=== PATIENT | male | born 1965 | race Caucasian/White ===

== ENCOUNTER 2016-10-27 11:49 | Emergency (ER) | payer BC ==
[2016-10-27 11:56] VITALS: BP 139/83
--- NOTE | 2016-10-27 12:47 | UC ---
Throat Pain/Nasal Valeriano HPI - HPI Summary HPI Summary: Sore throat , nasal congest, fatigue feels feverish, feels like when he had Lyme last year-did complete treatment, no addition tick exposures - History of Current Complaint Chief Complaint: UCRespiratory Stated Complaint: SINUS COMPLAINT Time Seen by Provider: 10/27/16 11:52 Hx Obtained From: Patient Onset/Duration: Gradual Onset, Lasting Days - 7, Still Present Severity: Mild Pain Intensity: 0 Pain Scale Used: 0-10 Numeric Cough: Nonproductive Associated Signs & Symptoms: Positive: Nasal Discharge. Negative: Sinus Discomfort - Allergies/Home Medications Allergies/Adverse Reactions: Allergies Allergy/AdvReac Type Severity Reaction Status Date / Time No Known Allergies Allergy Verified 10/27/16 11:57 PMH/Surg Hx/FS Hx/Imm Hx Previously Healthy: No Endocrine History Of: Denies: Diabetes, Thyroid Disease Cardiovascular History Of: Reports: Cardiac Disorders - Aortic valve replacement Denies: Hypertension, Congestive Heart Failure, Deep Vein Thrombosis Respiratory History Of: Denies: COPD, Asthma GI/ History Of: Denies: Ulcer, Renal Disease - Surgical History Surgical History: Yes Surgery Procedure, Year, and Place: HEART VALVE REPLACEMENT may 2007 - Family History Known Family History: Positive: None Family History: no cardiovascular issues reported in family - Social History Occupation: Employed Full-time Lives: With Family Alcohol Use: Occasionally Substance Use Type: None Smoking Status (MU): Never Smoked Tobacco When Did the Patient Quit Smoking/Using Tobacco: 10 years ago - Immunization History Most Recent Influenza Vaccination: [id number] Season Review of Systems Constitutional: Negative, Chills, Fatigue Skin: Negative Eyes: Negative ENT: Sore Throat, Nasal Discharge Respiratory: Cough Cardiovascular: Negative Gastrointestinal: Negative Genitourinary: Negative Motor: Negative Neurovascular: Negative Musculoskeletal: Negative Neurological: Negative Psychological: Negative All Other Systems Reviewed And Are Negative: Yes Physical Exam Triage Information Reviewed: Yes Appearance: Well-Appearing, No Pain Distress, Well-Nourished Vital Signs: Initial Vital Signs Temp 98.1 F 10/27/16 11:53 Pulse 59 10/27/16 11:53 Resp 18 10/27/16 11:53 BP 139/83 10/27/16 11:53 Pulse Ox 99 10/27/16 11:53 Vital Signs Reviewed: Yes Eye Exam: Normal Eyes: Positive: Conjunctiva Clear ENT Exam: Normal ENT: Positive: Normal ENT inspection, Hearing grossly normal, Pharynx normal, Nasal congestion, Nasal drainage, TMs normal. Negative: Tonsillar swelling, Tonsillar exudate, Trismus, Muffled/hoarse voice Dental Exam: Normal Neck exam: Normal Neck: Positive: Supple, Nontender, No Lymphadenopathy Respiratory Exam: Normal Respiratory: Positive: Chest non-tender, Lungs clear, Normal breath sounds, No respiratory distress Cardiovascular Exam: Normal Cardiovascular: Positive: RRR, Pulses Normal, Brisk Capillary Refill Musculoskeletal Exam: Normal Musculoskeletal: Positive: Strength Intact, ROM Intact, No Edema Neurological Exam: Normal Neurological: Positive: Alert, Muscle Tone Normal Psychological Exam: Normal Skin Exam: Normal Skin: Negative: rashes Diagnostics - Laboratory Diagnostic Studies Completed/Ordered: RST (-) Throat Pain/Nasal Course/Dx - Course Assessment/Plan: Lyme titer, increase fluids, continuw tylenol and mucinex follow with Dr. Hammond next week - Differential Dx/Diagnosis Differential Diagnosis/HQI/PQRI: URI Provider Diagnoses: Uri, Fatigue, Borderline Hypertension Discharge - Discharge Plan Condition: Stable Disposition: HOME Patient Education Materials: Upper Respiratory Infection (ED), Viral Syndrome ( ED), Fatigue (ED) Referrals: Ryan Hammond MD [Primary Care Provider] - 5 Days
== END 2016-10-27 12:37 | disposition home or self-care (01) ==
LOC: UCEAST 11:49
DX: J06.9 Acute upper respiratory infection, unspecified (principal); R53.83 Other fatigue; R03.0 Elevated blood-pressure reading, without diagnosis of hypertension; Z95.2 Presence of prosthetic heart valve; Z87.891 Personal history of nicotine dependence
CPT/HCPCS: 86617; 86618; 87651; 99211; G0463

== ENCOUNTER 2016-12-04 14:57 | Emergency (ER) | payer BC ==
[2016-12-04 15:57] VITALS: BP 123/76
== END 2016-12-04 16:16 | disposition left against medical advice (07) ==
LOC: UCEAST 14:57
DX: J02.9 Acute pharyngitis, unspecified (principal); Z53.21 Procedure and treatment not carried out due to patient leaving prior to being seen by health care provider

== ENCOUNTER 2016-12-04 17:39 | Emergency (ER) | payer BC ==
[2016-12-04 17:47] VITALS: BP 117/71
--- NOTE | 2016-12-04 18:50 | UC ---
Throat Pain/Nasal Valeriano HPI - HPI Summary HPI Summary: ST worsening since yesterday, has 10-year-old son who vomited this weekend. Some cough and congestion as well. Denies fever, vomiting, or diarrhea. - History of Current Complaint Chief Complaint: UCRespiratory Stated Complaint: SORE THROAT Time Seen by Provider: 12/04/16 18:38 Hx Obtained From: Patient Onset/Duration: Gradual Onset, Lasting Days Severity: Moderate Cough: Nonproductive - Allergies/Home Medications Allergies/Adverse Reactions: Allergies Allergy/AdvReac Type Severity Reaction Status Date / Time No Known Allergies Allergy Verified 10/27/16 11:57 PMH/Surg Hx/FS Hx/Imm Hx Previously Healthy: Yes - Surgical History Surgical History: Yes Surgery Procedure, Year, and Place: HEART VALVE REPLACEMENT may 2007 - Family History Known Family History: Positive: None Family History: no cardiovascular issues reported in family - Social History Alcohol Use: Occasionally Substance Use Type: None Smoking Status (MU): Never Smoked Tobacco When Did the Patient Quit Smoking/Using Tobacco: 10 years ago - Immunization History Most Recent Influenza Vaccination: [id number] Review of Systems Constitutional: Negative Skin: Negative Eyes: Negative ENT: Sore Throat, Nasal Discharge Respiratory: Negative Cardiovascular: Negative Gastrointestinal: Negative Genitourinary: Negative Motor: Negative Neurovascular: Negative Musculoskeletal: Negative Neurological: Negative Psychological: Negative All Other Systems Reviewed And Are Negative: Yes Physical Exam Triage Information Reviewed: Yes Appearance: Well-Appearing, Well-Nourished Vital Signs: Initial Vital Signs Temp 98 F 12/04/16 17:44 Pulse 82 12/04/16 17:44 Resp 18 12/04/16 17:44 BP 117/71 12/04/16 17:44 Pulse Ox 100 12/04/16 17:44 Vital Signs Reviewed: Yes Eye Exam: Normal Eyes: Positive: Conjunctiva Clear ENT: Positive: Normal ENT inspection, Hearing grossly normal, Pharynx normal, TMs normal. Negative: Tonsillar swelling, Tonsillar exudate Dental Exam: Normal Neck exam: Normal Neck: Positive: Supple, Nontender, No Lymphadenopathy Respiratory Exam: Normal Respiratory: Positive: Chest non-tender, Lungs clear, Normal breath sounds, No respiratory distress, No accessory muscle use Cardiovascular Exam: Normal Cardiovascular: Positive: RRR, No Murmur Musculoskeletal Exam: Normal Neurological Exam: Normal Neurological: Positive: Alert Psychological Exam: Normal Skin Exam: Normal Throat Pain/Nasal Course/Dx - Differential Dx/Diagnosis Provider Diagnoses: pharyngitis Discharge - Discharge Plan Condition: Stable Disposition: HOME Patient Education Materials: Pharyngitis (ED) Referrals: Ryan Shah MD [Primary Care Provider] - Additional Instructions: Rapid strep negative. Given that you have some nasal congestion and some cough, it is likely you have a respiratory virus. These usually resolve in 1-2 weeks, though coughing can go on longer.
== END 2016-12-04 19:02 | disposition home or self-care (01) ==
LOC: UCEAST 17:39
DX: J02.9 Acute pharyngitis, unspecified (principal); Z87.891 Personal history of nicotine dependence
CPT/HCPCS: 87651; 99211; G0463

== ENCOUNTER 2017-07-01 19:58 | Emergency (ER) | payer BC ==
--- NOTE | 2017-07-01 20:45 | RAD ---
INDICATION: Head injury. COMPARISON: There are no prior studies available for comparison. TECHNIQUE: Contiguous axial sections of the brain were obtained from the skull base to the vertex without contrast. FINDINGS: The ventricles, cisterns and sulci are within normal limits. No significant focal abnormality or mass effect is seen. There is no evidence for hemorrhage. No significant focal osseous abnormality is seen. The visualized portion of the paranasal sinuses and mastoid air cells appear clear. IMPRESSION: NO EVIDENCE FOR ACUTE INTRACRANIAL ABNORMALITY.
[2017-07-01 20:47] LABS: INR 2.72 (0.77-1.02)
--- NOTE | 2017-07-01 20:53 | ED ---
Parul Olmstead Thomas, scribed for Hedy Sadler MD on 07/01/17 at 2009 . Head Injury - HPI Summary HPI Summary: The patient is a 52 year old male brought in by ambulance to the emergency department with a head injury that occurred today about two hours ago. The patient had an accidental fall and struck the back of his head. Patient is asymptomatic in the ED. Patient denies any headache, pain, or loss of consciousness. He is on Coumadin. - History Of Current Complaint Chief Complaint: EDHeadInjury Stated Complaint: FALL/HEAD INJURY Time Seen by Provider: 07/01/17 20:03 Hx Obtained From: Patient Mechanism Of Injury: Fall From A Standing Position Onset/Duration: Started Hours Ago - 2, Still Present Severity Currently: None Pain Intensity: 0 Pain Scale Used: 0-10 Numeric Location of Head Injury: Other: - Back of head Aggravating Factor(s): Other: - Nothing Alleviating Factor(s): Other: - Nothing Associated Signs And Symptoms: Other: - NEGATIVE: headache, LOC, pain Anticoagulant Therapy: Coumadin - Allergies/Home Medications Allergies/Adverse Reactions: Allergies Allergy/AdvReac Type Severity Reaction Status Date / Time No Known Allergies Allergy Verified 10/27/16 11:57 PMH/Surg Hx/FS Hx/Imm Hx Previously Healthy: No Endocrine/Hematology History: Reports: Hx Anticoagulant Therapy - Coumadin Denies: Hx Diabetes, Hx Systemic Lupus Erythematosus, Hx Thyroid Disease Cardiovascular History: Reports: Hx Congenital Heart Disease Denies: Hx Aneurysm, Hx Angina, Hx Congestive Heart Failure, Hx Deep Vein Thrombosis, Hx Hypercholesterolemia, Hx Hypertension, Other Cardiovascular Problems/Disorders Respiratory History: Denies: Hx Asthma, Hx Chronic Obstructive Pulmonary Disease (COPD), Other Respiratory Problems/Disorders GI History: Denies: Hx Ulcer History: Denies: Hx Dialysis, Hx Renal Disease Musculoskeletal History: Denies: Hx Rheumatoid Arthritis - Cancer History Hx Chemotherapy: No - Surgical History Surgery Procedure, Year, and Place: HEART VALVE REPLACEMENT may 2007 Infectious Disease History: No Infectious Disease History: Denies: Hx Clostridium Difficile, Hx Hepatitis, Hx Human Immunodeficiency Virus (HIV), Hx of Known/Suspected MRSA, Hx Shingles, Hx Tuberculosis, Hx Known/ Suspected VRE, Hx Known/Suspected VRSA, History Other Infectious Disease, Traveled Outside the [place] in Last 30 Days - Family History Known Family History: Negative: Cardiac Disease - Social History Alcohol Use: Occasionally Substance Use Type: Reports: None Smoking Status (MU): Never Smoked Tobacco Review of Systems Negative: Fever Negative: Other - pain Neurological: Other - Head injury; NEGATIVE: LOC Negative: Headache All Other Systems Reviewed And Are Negative: Yes Physical Exam - Summary Physical Exam Summary: VITAL SIGNS: Reviewed. GENERAL: Patient is a well-developed and nourished male who is lying comfortable in the stretcher. Patient is not in any acute respiratory distress. HEAD AND FACE: He has a small red swelling over the vertex. No ecchymosis, hematomas or skull depressions. No sinus tenderness. EYES: PERRLA, EOMI x 2, No injected conjunctiva, no nystagmus. EARS: Hearing grossly intact. Ear canals and tympanic membranes are within normal limits. MOUTH: Oropharynx within normal limits. NECK: Supple, trachea is midline, no adenopathy, no JVD, no carotid bruit, no c- spine tenderness, neck with full ROM. CHEST: Symmetric, no tenderness at palpation LUNGS: Clear to auscultation bilaterally. No wheezing or crackles. CVS: Regular rate and rhythm. He has a click over the left sternal border. ABDOMEN: Soft, non-tender. No signs of distention. No rebound no guarding, and no masses palpated. Bowel sounds are normal. EXTREMITIES: FROM in all major joints, no edema, no cyanosis or clubbing. NEURO: Alert and oriented x 3. No acute neurological deficits. Speech is normal and follows commands. SKIN: Dry and warm Triage Information Reviewed: Yes Vital Signs On Initial Exam: Initial Vitals Temp Pulse Resp BP Pulse Ox 97.3 F 74 18 146/95 99 07/01/17 20:00 07/01/17 20:00 07/01/17 20:00 07/01/17 20:00 07/01/17 20:00 Vital Signs Reviewed: Yes Diagnostics - Vital Signs Vital Signs Temp Pulse Resp BP Pulse Ox 07/01/17 20:00 97.3 F 74 18 146/95 99 - Laboratory Lab Results: Lab Results 07/01/17 Range/Units 20:30 INR (Anticoag Therapy) 2.72 H (0.77-1.02) Lab Statement: Any lab studies that have been ordered have been reviewed, and results considered in the medical decision making process. - CT CT Brain CT Interpretation: No Acute Changes - NO EVIDENCE FOR ACUTE INTRACRANIAL ABNORMALITY. Dr. Sadler has reviewed this report. CT Interpretation Completed By: Radiologist Head Injury Course/Dx Assessment/Plan: The patient is a 52 year old male on Coudmadin brought in by ambulance to the emergency department with a head injury that occurred today about two hours ago. The patient is asymptomatic in the ED. He has a small red swelling over the vertex. He has a click over the left sternal border. Bloodwork was obtained and INR is 2.72. CT Brain shows NO EVIDENCE FOR ACUTE INTRACRANIAL ABNORMALITY. The patient is diagnosed with head injury. The patient was instructed to call his doctor tomorrow to schedule an outpatient CT scan in 2-3 days. He was also instructed to return to the emergency department if he develops any symptoms. - Diagnoses Provider Diagnoses: Head injury Discharge - Discharge Plan Condition: Stable Disposition: HOME Patient Education Materials: Head Injury (ED) Referrals: Ludy Chung MD [Primary Care Provider] - 07/02/17 Additional Instructions: Call your doctor tomorrow. You will need your CT scan repeated in 2-3 days from now because you are on Coumadin. Return to the emergency department for any new or worsening symptoms. The documentation as recorded by the Parul briggs Thomas accurately reflects the service I personally performed and the decisions made by , Hedy Sadler MD.
[2017-07-01 21:07] VITALS: BP 132/78
== END 2017-07-01 21:06 | disposition home or self-care (01) ==
LOC: ED 19:58
DX: S09.90XA Unspecified injury of head, initial encounter (principal); Z79.01 Long term (current) use of anticoagulants; W19.XXXA Unspecified fall, initial encounter; Y92.9 Unspecified place or not applicable; Z95.2 Presence of prosthetic heart valve; Q24.9 Congenital malformation of heart, unspecified
CPT/HCPCS: 36415; 70450; 85610; 99282

== ENCOUNTER 2019-07-06 13:04 | Emergency (ER) | payer OTHER ==
[2019-07-06 13:23] VITALS: BP 110/79
--- NOTE | 2019-07-06 13:31 | UC ---
Throat Pain/Nasal Valeriano HPI - HPI Summary HPI Summary: Patient is a 54yo male presenting with nasal congestion and sinus pressure that have been gradually worsening x1 week. Patient states illness began with sore throat as well which resolved. Notes fatigue. Denies ear pain. Denies cough. Denies fever and chills. States he has taken sudafed without relief. - History of Current Complaint Chief Complaint: UCGeneralIllness Stated Complaint: SINUS ISSUE Hx Obtained From: Patient Onset/Duration: Gradual Onset Pain Intensity: 6 Pain Scale Used: 0-10 Numeric - Allergies/Home Medications Allergies/Adverse Reactions: Allergies Allergy/AdvReac Type Severity Reaction Status Date / Time No Known Allergies Allergy Verified 07/06/19 13:23 PMH/Surg Hx/FS Hx/Imm Hx Cardiovascular History: Other - valve replacement Other History Of: Anticoagulant Therapy - Coumadin - Surgical History Surgical History: Yes Surgery Procedure, Year, and Place: HEART VALVE REPLACEMENT may 2007 - Family History Known Family History: Positive: None Negative: Cardiac Disease Family History: no cardiovascular issues reported in family - Social History Alcohol Use: Occasionally Substance Use Type: None Smoking Status (MU): Never Smoked Tobacco When Did the Patient Quit Smoking/Using Tobacco: 10 years ago - Immunization History Most Recent Influenza Vaccination: [id number] Season Review of Systems All Other Systems Reviewed And Are Negative: Yes Constitutional: Positive: Fatigue. Negative: Fever, Chills ENT: Positive: Nasal Discharge - PND, Sinus Congestion, Sinus Pain/Tenderness - sinus pressure. Negative: Sore Throat, Ear Ache Respiratory: Positive: Negative Cardiovascular: Positive: Negative Gastrointestinal: Positive: Negative Musculoskeletal: Positive: Negative Neurological: Positive: Headache Physical Exam Triage Information Reviewed: Yes Appearance: Well-Appearing, No Pain Distress, Well-Nourished Vital Signs: Initial Vital Signs Temp 95 F 07/06/19 13:20 Pulse 80 07/06/19 13:20 Resp 17 07/06/19 13:20 BP 110/79 07/06/19 13:20 Pulse Ox 99 07/06/19 13:20 Vital Signs Reviewed: Yes Eyes: Positive: Conjunctiva Clear ENT: Positive: Hearing grossly normal, Pharynx normal, Nasal congestion, Nasal drainage - PND, TMs normal, Sinus tenderness - maxillary, Uvula midline. Negative: Pharyngeal erythema, Tonsillar swelling, Tonsillar exudate Neck exam: Normal Neck: Positive: Supple, Nontender, No Lymphadenopathy Respiratory Exam: Normal Respiratory: Positive: Lungs clear, Normal breath sounds, No respiratory distress Cardiovascular Exam: Normal Cardiovascular: Positive: RRR, No Murmur Neurological: Positive: Alert Psychological: Positive: Age Appropriate Behavior Skin Exam: Normal Throat Pain/Nasal Course/Dx - Course Course Of Treatment: I treated patient with Augmentin for sinusitis and instructed to continue with symptomatic treatment. Instructed to follow up with pcp if symptoms persist. Patient voiced understanding and agreed with treatment plan. - Differential Dx/Diagnosis Differential Diagnosis/HQI/PQRI: URI Provider Diagnosis: Sinusitis, acute Discharge ED - Sign-Out/Discharge Documenting (check all that apply): Patient Departure All imaging exams completed and their final reports reviewed: No Studies - Discharge Plan Condition: Stable Disposition: HOME Prescriptions: Amoxicillin/Clavulanate TAB* [Augmentin TAB 875*] 875 mg PO BID #14 tab Patient Education Materials: Sinusitis (ED) Referrals: Ryan Shah MD [Primary Care Provider] - If Needed Additional Instructions: As discussed, take Augmentin for treatment of your sinus infection. You may continue with Sudafed. You may also add a nasal saline spray or Flonase. A humidifer at night may also help alleviate symptoms. Follow up with your primary care provider if symptoms do not resolve within 7 days. - Billing Disposition and Condition Condition: STABLE Disposition: Home
== END 2019-07-06 13:59 | disposition home or self-care (01) ==
LOC: UCEAST 13:04
DX: J01.90 Acute sinusitis, unspecified (principal); Z95.5 Presence of coronary angioplasty implant and graft; Z79.01 Long term (current) use of anticoagulants
CPT/HCPCS: 99212; G0463